=== PATIENT | female | born 1950 | race Caucasian/White ===

== ENCOUNTER 2022-02-01 08:35 | Outpatient (CLI) | payer MEDICARE, BC ==
[2022-02-01] MEDS ORDERED: Iopamidol 300 61% 100 ML VIAL FS ONE (10:56)
== END 2022-02-01 08:36 | disposition home or self-care (01) ==
LOC: CSHCT 08:35
PROVIDERS: ATTEND Family Medicine
DX: R10.30 Lower abdominal pain, unspecified (principal); K59.01 Slow transit constipation
CPT/HCPCS: 74177; 82565; Q9967